=== PATIENT | female | born 1990 | race American Indian/Alaskan Native ===

== ENCOUNTER 2018-10-07 21:46 | Emergency (ER) | payer SELFPAY ==
[2018-10-07 22:33] VITALS: BP 102/70
== END 2018-10-08 02:00 | disposition left against medical advice (07) ==
LOC: ED 21:46
DX: S00.459A Superficial foreign body of unspecified ear, initial encounter (principal); Z53.21 Procedure and treatment not carried out due to patient leaving prior to being seen by health care provider; X58.XXXA Exposure to other specified factors, initial encounter; Y93.89 Activity, other specified; Y92.89 Other specified places as the place of occurrence of the external cause; Y99.8 Other external cause status

== ENCOUNTER 2018-10-31 20:30 | Emergency (ER) | payer OTHER ==
[2018-10-31] MEDS ORDERED: IBUPROFEN PO ONE ×2 (21:55→22:00)
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
[2018-11-01 00:32] LABS: Bilirubin,Urine NEG (Negative); Blood,Urine NEG (Negative); Color,Urine Yellow (Yellow); Mucus,Urine FEW /HPF; Protein,Urine <15 mg/dL mg/dL (Negative)
[2018-11-01 00:33] LABS: HCG Qualitative,Urine Negative (Negative)
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
[2018-11-01 02:54] VITALS: BP 130/84
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
== END 2018-11-01 02:52 | disposition home or self-care (01) ==
LOC: ED 20:30
DX: S16.1XXA Strain of muscle, fascia and tendon at neck level, initial encounter (principal); S39.012A Strain of muscle, fascia and tendon of lower back, initial encounter; S50.311A Abrasion of right elbow, initial encounter; S70.10XA Contusion of unspecified thigh, initial encounter; F17.200 Nicotine dependence, unspecified, uncomplicated; F12.10 Cannabis abuse, uncomplicated; Z90.49 Acquired absence of other specified parts of digestive tract; V87.7XXA Person injured in collision between other specified motor vehicles (traffic), initial encounter; Y93.89 Activity, other specified; Y92.488 Other paved roadways as the place of occurrence of the external cause; Y99.8 Other external cause status
CPT/HCPCS: 72040; 72100; 81001; 81025; 99284